=== PATIENT | male | born 1990 | race Caucasian/White ===

== ENCOUNTER 2018-03-18 17:23 | Emergency (ER) | payer SELFPAY ==
[~2018-03-18] VITALS: Ht 182.9 cm; Wt 61.7 kg
--- NOTE | 2018-03-18 18:30 | PHYS DOC ---
Past Medical History Past Medical History: No Pertinent History Past Surgical History: Appendectomy Smoking: Cigarettes Adult General Chief Complaint Chief Complaint: ABDOMINAL PAIN HPI HPI 28-year-old male presents with report of lower abdominal pain with radiation to flank. Patient also reports some discomfort in his groin. Denies known trauma. Denies fever or chills. Patient reports pain started approximately 10 AM today. Reports pain has waxed and waned in intensity. Reports some associated nausea. Denies hematuria or dysuria. Denies rash. Reports subjective fever/chills. Denies history of kidney stones. Review of Systems Review of Systems Constitutional: Reports subjective fever/ chills [] Eyes: Denies change in visual acuity, redness, or eye pain [] HENT: Denies nasal congestion or sore throat [] Respiratory: Denies cough or shortness of breath [] Cardiovascular: Denies chest pain or palpitations GI: Reports abdominal pain and nausea; denies vomiting or diarrhea [] : Denies dysuria or hematuria [] Musculoskeletal: Reports back pain; denies joint pain [] Integument: Denies rash or skin lesions [] Neurologic: Denies headache, focal weakness or sensory changes [] Complete systems were reviewed and found to be within normal limits, except as documented in this note. Current Medications Current Medications Current Medications Medications (Trade) Dose Ordered Sig/Tresa Start Time Stop Time Status Last Admin Dose Admin Acetaminophen (Tylenol) 500 mg 1X ONCE 03/18/18 19:00 03/18/18 19:01 DC 03/18/18 19:18 500 MG Fentanyl Citrate (Fentanyl 2ml Vial) 50 mcg 1X ONCE 03/18/18 18:45 03/18/18 18:46 DC 03/18/18 19:17 50 MCG Ketorolac Tromethamine (Toradol 30mg Vial) 15 mg 1X ONCE 03/18/18 18:45 03/18/18 18:46 DC 03/18/18 19:17 15 MG Magnesium Sulfate 50 ml @ 25 mls/hr 1X ONCE 03/18/18 20:00 03/18/18 21:59 03/18/18 20:59 25 MLS/HR Metoclopramide HCl (Reglan Vial) 10 mg 1X ONCE 03/18/18 18:45 03/18/18 18:46 DC 03/18/18 19:17 10 MG Sodium Chloride 1,000 ml @ 1,000 mls/hr 1X ONCE 03/18/18 18:45 03/18/18 19:44 DC 03/18/18 19:18 1,000 MLS/HR Allergies Allergies Allergies Coded Allergies Type Severity Reaction Last Updated Verified No Known Drug Allergies 03/18/18 No Physical Exam Physical Exam Constitutional: Well developed, well nourished, appears uncomfortable, non- toxic appearance. [] HENT: Normocephalic, atraumatic, oropharynx moist, poor dentition Eyes: PERRL, EOMI, conjunctiva normal, no discharge. [] Neck: Normal range of motion, no tenderness, supple, no meningeal signs Cardiovascular: Heart rate regular rhythm, no murmur [] Lungs & Thorax: Bilateral breath sounds clear to auscultation; no Rales Abdomen: Soft, no tenderness Skin: Warm, dry, no erythema, no rash. [] Back: Right CVA tenderness, no midline spinal tenderness on palpation Extremities: No calf tenderness, ROM intact, no edema. [] Neurologic: Alert and oriented X 3, normal motor function, normal sensory function, no focal deficits noted. [] Psychologic: Affect normal, judgement normal, mood normal. [] Current Patient Data Vital Signs Vital Signs Date Time Temp Pulse Resp B/P (MAP) Pulse Ox O2 Delivery O2 Flow Rate FiO2 03/18/18 19:17 20 99 Room Air 03/18/18 18:00 100.5 89 132/74 (93) 100.5 Lab Values Laboratory Tests Test 03/18/18 18:00 03/18/18 18:20 Urine Collection Type Unknown Urine Color Maura Urine Clarity Clear Urine pH 6.0 Urine Specific Shubert 1.025 Urine Protein Negative mg/dL (NEG-TRACE) Urine Glucose (UA) Negative mg/dL (NEG) Urine Ketones (Stick) 15 mg/dL (NEG) Urine Blood Negative (NEG) Urine Nitrite Negative (NEG) Urine Bilirubin Negative (NEG) Urine Urobilinogen Dipstick 0.2 mg/dL (0.2 mg/dL) Urine Leukocyte Esterase Negative (NEG) Urine RBC 0 /HPF (0-2) Urine WBC 1-4 /HPF (0-4) Urine Squamous Epithelial Cells Few /LPF Urine Bacteria 0 /HPF (0-FEW) Urine Mucus Marked /LPF White Blood Count 9.6 x10^3/uL (4.0-11.0) Red Blood Count 4.69 x10^6/uL (4.30-5.70) Hemoglobin 14.4 g/dL (13.0-17.5) Hematocrit 41.0 % (39.0-53.0) Mean Corpuscular Volume 88 fL (79-100) Mean Corpuscular Hemoglobin 31 pg (25-35) Mean Corpuscular Hemoglobin Concent 35 g/dL (31-37) Red Cell Distribution Width 13.7 % (11.5-14.5) Platelet Count 248 x10^3/uL (140-400) Neutrophils (%) (Auto) 87 % (31-73) H Lymphocytes (%) (Auto) 6 % (24-48) L Monocytes (%) (Auto) 7 % (0-9) Eosinophils (%) (Auto) 0 % (0-3) Basophils (%) (Auto) 0 % (0-3) Neutrophils # (Auto) 8.3 x10^3uL (1.8-7.7) H Lymphocytes # (Auto) 0.6 x10^3/uL (1.0-4.8) L Monocytes # (Auto) 0.6 x10^3/uL (0.0-1.1) Eosinophils # (Auto) 0.0 x10^3/uL (0.0-0.7) Basophils # (Auto) 0.0 x10^3/uL (0.0-0.2) Platelet Estimate Pending Sodium Level 140 mmol/L (136-145) Potassium Level 3.3 mmol/L (3.5-5.1) L Chloride Level 103 mmol/L (98-107) Carbon Dioxide Level 24 mmol/L (21-32) Anion Gap 13 (6-14) Blood Urea Nitrogen 12 mg/dL (8-26) Creatinine 0.9 mg/dL (0.7-1.3) Estimated GFR (Cockcroft-Gault) 102.0 BUN/Creatinine Ratio 13 (6-20) Glucose Level 103 mg/dL (70-99) H Calcium Level 9.9 mg/dL (8.5-10.1) Magnesium Level 1.2 mg/dL (1.8-2.4) L Total Bilirubin 0.5 mg/dL (0.2-1.0) Aspartate Amino Transferase (AST) 13 U/L (15-37) L Alanine Aminotransferase (ALT) 18 U/L (16-63) Alkaline Phosphatase 68 U/L (46-116) Total Protein 7.6 g/dL (6.4-8.2) Albumin 4.2 g/dL (3.4-5.0) Albumin/Globulin Ratio 1.2 (1.0-1.7) Lipase 174 U/L (73-393) Laboratory Tests 03/18/18 18:20 Laboratory Tests 03/18/18 18:20 EKG EKG [] Radiology/Procedures Radiology/Procedures PROCEDURE: CT ABDOMEN PELVIS WO CONTRAST Exam performed: CT scan of the abdomen and pelvis without contrast. Clinical Indication: Bilateral flank pain. Date of Service: 03/18/2018 . Comparison: None available Technique: Contiguous helical acquisitions are obtained through the abdomen and pelvis without oral or IV contrast. Sagittal and coronal reformatted images are obtained and reviewed. CT abdomen findings: The lung bases are essentially clear. The visualized heart is normal. Lack of IV contrast limits evaluation of abdominal viscera, however the liver, spleen, pancreas and gallbladder appear normal. Both adrenal glands and bilateral kidneys are normal in size. There is no nephrolithiasis or hydronephrosis. No perinephric stranding is seen. Aorta is normal in caliber. No retroperitoneal or mesenteric lymphadenopathy. Small and large bowel loops are nondilated and unremarkable. There is scattered stool in the colon. Mildly prominent mesenteric lymph nodes are seen in the central and right lower abdomen. CT pelvis findings: The pelvic bowel loops are nondilated and unremarkable. The urinary bladder is decompressed. The prostate gland and seminal vesicles are normal. No fluid collections or pelvic lymphadenopathy. Bones are unremarkable. Impression: No acute intra-abdominal or pelvic process noted. Mildly prominent mesenteric lymph nodes seen in the midline in the right lower abdomen. Mesenteric adenitis is possible. PQRS Compliance Statement: One or more of the following individualized dose reduction techniques were utilized for this examination: 1. Automated exposure control 2. Adjustment of the mA and/or kV according to patient size 3. Use of iterative reconstruction technique Electronically signed by: Monika Vale MD (03/18/2018 8:28 PM) [facility] Course & Med Decision Making Course & Med Decision Making Pertinent Labs and Imaging studies reviewed. (See chart for details) Patient presents with report of lower abdominal pain with associated flank pain and radiation to groin. Denies known trauma. Reports some subjective fever/ chills. Patient noted to be febrile. Fever addressed. Pain/nausea addressed. Labs obtained and posted to chart. UA without acute process. CT abdomen/pelvis without acute process. Mesenteric thickening noted which appears nonspecific and inconsistent with patient exam. Magnesium replaced. Patient stable for discharge with outpatient follow-up with PCP/GI. GI referral provided. Patient to increase diet to include foods that are rich in potassium and magnesium. Discussed findings and plan with patient and family, who acknowledge understanding and agreement. Dragon Disclaimer Dragon Disclaimer This electronic medical record was generated, in whole or in part, using a voice recognition dictation system. Departure Departure Impression: Primary Impression: Abdominal pain Additional Impressions: Back pain Hypomagnesemia Hypokalemia Disposition: HOME, SELF-CARE Condition: STABLE Referrals: NO PCP (PCP) PERICO MUNOZ MD Patient Instructions: Abdominal Pain, Back Pain, Adult, [id number], Hypokalemia, Hypomagnesemia, Potassium Content of Foods Additional Instructions: Increase your diet to include foods rich in potassium and magnesium. Scripts Naproxen (NAPROSYN) 500 Mg Tablet 500 MG PO BID PRN for PAIN for 10 Days, #20 TAB Prov: CHRISTOPHER CERVANTES DO 03/18/18 Orphenadrine Citrate (ORPHENADRINE CITRATE) 100 Mg Tablet.er 1 TAB PO BID, #14 TAB 0 Refills Prov: CHRISTOPHER CERVANTES DO 03/18/18 Famotidine (PEPCID) 20 Mg Tablet 20 MG PO BID, #20 TAB Prov: CHRISTOPHER CERVANTES DO 03/18/18 Problem Qualifiers Primary Impression: Abdominal pain Abdominal location: lower abdomen, unspecified Qualified Codes: R10.30 - Lower abdominal pain, unspecified Additional Impressions: Back pain Back pain location: low back pain Chronicity: acute Back pain laterality: bilateral Sciatica presence: without sciatica Qualified Codes: M54.5 - Low back pain CHRISTOPHER CERVANTES DO Mar 18, 2018 18:30
[2018-03-18] MEDS ORDERED: KETOROLAC 30 MG/ML VIAL. IV ONE (18:45)
[2018-03-18] MEDS ORDERED: IV NORMAL SALINE 1000ML BAG 1,000 ML IV ONE (18:45)
[2018-03-18] MEDS ORDERED: METOCLOPRAMIDE HCL 10 MG/2 ML VIAL. IV ONE (18:45)
[2018-03-18] MEDS ORDERED: fentaNYL PF VIAL 100 MCG/2 ML VIAL IV ONE (18:45)
[2018-03-18 18:53] LABS: BILIRUBIN,URINE NEGATIVE (NEG); CLARITY,URINE CLEAR; COLOR,URINE AMBER; NITRITE,URINE NEGATIVE (NEG); PROTEIN,URINE NEGATIVE (NEG-TRACE); UROBILINOGEN,URINE 0.2 mg/dL (0.2 mg/dL)
[2018-03-18 18:56] LABS: BASO % 0 % (0-3); EOS % 0 % (0-3); HEMOGLOBIN 14.4 g/dL (13.0-17.5); LYMPH # 0.6 x10^3/uL (1.0-4.8); LYMPH % 6 % (24-48); MEAN CORPUSCULAR HEMOGLOBIN 31 pg (25-35); MEAN CORPUSCULAR HGB CONC 35 g/dL (31-37); MEAN CORPUSCULAR VOLUME 88 fL (79-100); MONO # 0.6 x10^3/uL (0.0-1.1); MONO % 7 % (0-9); NEUT # 8.3 x10^3uL (1.8-7.7); NEUT % 87 % (31-73); PLATELET COUNT 248 x10^3/uL (140-400); RED BLOOD COUNT 4.69 x10^6/uL (4.30-5.70); RED CELL DISTRIBUTION WIDTH 13.7 % (11.5-14.5); WHITE BLOOD COUNT 9.6 x10^3/uL (4.0-11.0)
[2018-03-18] MEDS ORDERED: ACETAMINOPHEN 500 MG TABLET PO ONE (19:00)
[2018-03-18 19:03] LABS: CALCIUM 9.9 mg/dL (8.5-10.1); CREATININE 0.9 mg/dL (0.7-1.3); POTASSIUM 3.3 mmol/L (3.5-5.1)
[2018-03-18 19:08] LABS: ALBUMIN 4.2 g/dL (3.4-5.0); ALBUMIN/GLOBULIN RATIO 1.2 (1.0-1.7); MAGNESIUM 1.2 mg/dL (1.8-2.4); TOTAL BILIRUBIN 0.5 mg/dL (0.2-1.0); TOTAL PROTEIN 7.6 g/dL (6.4-8.2)
[2018-03-18 19:47] LABS: BACTERIA,URINE 0 /HPF (0-FEW); RBC,URINE 0 /HPF (0-2); SQUAMOUS EPITHELIAL CELL,UR FEW /LPF
[2018-03-18] MEDS ORDERED: MAGNESIUM SULFATE 2GM 50 ML IV ONE (20:00)
--- NOTE | 2018-03-18 20:32 | RAD ---
Exam performed: CT scan of the abdomen and pelvis without contrast. Clinical Indication: Bilateral flank pain. Date of Service: 03/18/2018 . Comparison: None available Technique: Contiguous helical acquisitions are obtained through the abdomen and pelvis without oral or IV contrast. Sagittal and coronal reformatted images are obtained and reviewed. CT abdomen findings: The lung bases are essentially clear. The visualized heart is normal. Lack of IV contrast limits evaluation of abdominal viscera, however the liver, spleen, pancreas and gallbladder appear normal. Both adrenal glands and bilateral kidneys are normal in size. There is no nephrolithiasis or hydronephrosis. No perinephric stranding is seen. Aorta is normal in caliber. No retroperitoneal or mesenteric lymphadenopathy. Small and large bowel loops are nondilated and unremarkable. There is scattered stool in the colon. Mildly prominent mesenteric lymph nodes are seen in the central and right lower abdomen. CT pelvis findings: The pelvic bowel loops are nondilated and unremarkable. The urinary bladder is decompressed. The prostate gland and seminal vesicles are normal. No fluid collections or pelvic lymphadenopathy. Bones are unremarkable. Impression: No acute intra-abdominal or pelvic process noted. Mildly prominent mesenteric lymph nodes seen in the midline in the right lower abdomen. Mesenteric adenitis is possible. PQRS Compliance Statement: One or more of the following individualized dose reduction techniques were utilized for this examination: 1. Automated exposure control 2. Adjustment of the mA and/or kV according to patient size 3. Use of iterative reconstruction technique Electronically signed by: Monika Vale MD (03/18/2018 8:28 PM) [facility]
[2018-03-18] MEDS ORDERED: FAMO-63 PO (21:11)
[2018-03-18] MEDS ORDERED: ORPH100T PO (21:11)
[2018-03-18] MEDS ORDERED: NAPR-683 PO (21:11)
[2018-03-18 21:25] LABS: % BANDS 9 % (0-9); % LYMPHS 8 % (24-48); % MONOS 6 % (0-10); % SEGS 77 % (35-66); PLT ESTIMATE ADEQUATE (ADEQUATE)
[2018-03-18 22:30] VITALS: BP 112/55
[2018-03-18] MEDS ORDERED: ORPHENADRINE CITRATE 60 MG/2 ML VIAL. IV ONE (23:30)
== END 2018-03-18 23:15 | disposition home or self-care (01) ==
LOC: ER 17:23
DX: R10.30 Lower abdominal pain, unspecified (principal); M54.5 Low back pain; E83.42 Hypomagnesemia; E87.6 Hypokalemia
CPT/HCPCS: 36415; 74176; 80053; 81001; 83690; 83735; 85007; 85025; 96365; 96366; 96375; 99285; J1885; J2360; J2765; J3010; J3475; J7030

== ENCOUNTER 2018-08-21 04:44 | Emergency (ER) | payer SELFPAY ==
[~2018-08-21] VITALS: Ht 182.9 cm; Wt 61.7 kg
[~2018-08-21 04:44] MED LIST: FAMO-63 PO; NAPR-683 PO; ORPH100T PO
--- NOTE | 2018-08-21 04:57 | PHYS DOC ---
Past Medical History Past Medical History: No Pertinent History Past Surgical History: Appendectomy Alcohol Use: None Drug Use: Marijuana Adult General Chief Complaint Chief Complaint: ABDOMINAL PAIN HPI HPI Patient is a 28-year-old male who presents with complaint of abdominal pain with nausea and vomiting that started on Friday. He rates his pain currently to be an 8 out of 10 and describes pain as sharp and stabbing in nature. He states that his last bowel movement was a day and a half ago and states that it was liquid. He denies any fever. Patient states that he has not been able to eat anything for the last 3 days because of the nausea and vomiting. Patient states that nothing improves his symptoms. Review of Systems Review of Systems Constitutional: Denies fever or chills [] Respiratory: Denies cough or shortness of breath [] Cardiovascular: No additional information not addressed in HPI [] GI: Complains of abdominal pain with nausea, vomiting and diarrhea [] Integument: Denies rash or skin lesions [] Neurologic: Denies headache, focal weakness or sensory changes [] All other systems were reviewed and found to be within normal limits, except as documented in this note. Current Medications Current Medications Current Medications Medications (Trade) Dose Ordered Sig/Tresa Start Time Stop Time Status Last Admin Dose Admin Diphenhydramine HCl (Benadryl) 25 mg 1X ONCE 08/21/18 06:00 08/21/18 06:01 DC Info (CONTRAST GIVEN -- Rx MONITORING) 1 each PRN DAILY PRN 08/21/18 05:30 08/23/18 05:29 Iohexol (Omnipaque 300 Mg/ml) 75 ml 1X ONCE 08/21/18 06:00 08/21/18 06:01 DC 08/21/18 05:42 75 ML Ketorolac Tromethamine (Toradol 30mg Vial) 30 mg 1X ONCE 08/21/18 05:30 08/21/18 05:31 DC 08/21/18 05:28 30 MG Magnesium Sulfate/ Dextrose 100 ml @ 100 mls/hr 1X ONCE 08/21/18 06:30 08/21/18 07:29 Metoclopramide HCl (Reglan Vial) 10 mg 1X ONCE 08/21/18 06:00 08/21/18 06:01 DC Ondansetron HCl (Zofran) 4 mg 1X ONCE 08/21/18 05:30 08/21/18 05:31 DC 08/21/18 05:26 4 MG Sodium Chloride 1,000 ml @ 1,000 mls/hr Q1H 08/21/18 05:30 08/21/18 06:29 08/21/18 05:29 1,000 MLS/HR Allergies Allergies Allergies Coded Allergies Type Severity Reaction Last Updated Verified No Known Drug Allergies 03/18/18 No Physical Exam Physical Exam Constitutional: Well developed, well nourished, no acute distress, non-toxic appearance. [] HENT: Normocephalic, atraumatic, bilateral external ears normal, oropharynx moist, no oral exudates, nose normal. [] Eyes: PERRLA, EOMI, conjunctiva normal, no discharge. [] Neck: Normal range of motion, no tenderness, supple, no stridor. [] Cardiovascular: Regular rate and rhythm[] Lungs & Thorax: Bilateral breath sounds clear to auscultation [] Abdomen: Bowel sounds normal, soft, with moderate reported tenderness to palpation in the right abdomen. [] Skin: Warm, dry, no erythema, no rash. [] Extremities: No tenderness, no cyanosis, no clubbing, ROM intact, no edema. [] Neurologic: Alert and oriented X 3, no focal deficits noted. [] Current Patient Data Vital Signs Vital Signs Date Time Temp Pulse Resp B/P (MAP) Pulse Ox O2 Delivery O2 Flow Rate FiO2 08/21/18 04:45 98.4 94 18 179/63 (101) 99 Room Air 98.4 Lab Values Laboratory Tests Test 08/21/18 05:00 08/21/18 05:07 White Blood Count 10.9 x10^3/uL (4.0-11.0) Red Blood Count 4.95 x10^6/uL (4.30-5.70) Hemoglobin 14.9 g/dL (13.0-17.5) Hematocrit 43.3 % (39.0-53.0) Mean Corpuscular Volume 88 fL (79-100) Mean Corpuscular Hemoglobin 30 pg (25-35) Mean Corpuscular Hemoglobin Concent 34 g/dL (31-37) Red Cell Distribution Width 14.1 % (11.5-14.5) Platelet Count 197 x10^3/uL (140-400) Neutrophils (%) (Auto) 74 % (31-73) H Lymphocytes (%) (Auto) 19 % (24-48) L Monocytes (%) (Auto) 7 % (0-9) Eosinophils (%) (Auto) 0 % (0-3) Basophils (%) (Auto) 0 % (0-3) Neutrophils # (Auto) 8.0 x10^3uL (1.8-7.7) H Lymphocytes # (Auto) 2.1 x10^3/uL (1.0-4.8) Monocytes # (Auto) 0.8 x10^3/uL (0.0-1.1) Eosinophils # (Auto) 0.0 x10^3/uL (0.0-0.7) Basophils # (Auto) 0.0 x10^3/uL (0.0-0.2) Sodium Level 142 mmol/L (136-145) Potassium Level 3.5 mmol/L (3.5-5.1) Chloride Level 103 mmol/L (98-107) Carbon Dioxide Level 25 mmol/L (21-32) Anion Gap 14 (6-14) Blood Urea Nitrogen 19 mg/dL (8-26) Creatinine 0.8 mg/dL (0.7-1.3) Estimated GFR (Cockcroft-Gault) 116.9 BUN/Creatinine Ratio 24 (6-20) H Glucose Level 119 mg/dL (70-99) H Calcium Level 9.5 mg/dL (8.5-10.1) Total Bilirubin 0.6 mg/dL (0.2-1.0) Aspartate Amino Transferase (AST) 12 U/L (15-37) L Alanine Aminotransferase (ALT) 14 U/L (16-63) L Alkaline Phosphatase 81 U/L (46-116) Total Protein 8.0 g/dL (6.4-8.2) Albumin 4.7 g/dL (3.4-5.0) Albumin/Globulin Ratio 1.4 (1.0-1.7) Lipase 382 U/L (73-393) Urine Collection Type Void Urine Color Yellow Urine Clarity Clear Urine pH 6.0 Urine Specific Quinter 1.025 Urine Protein Negative mg/dL (NEG-TRACE) Urine Glucose (UA) Negative mg/dL (NEG) Urine Ketones (Stick) Trace mg/dL (NEG) Urine Blood Negative (NEG) Urine Nitrite Negative (NEG) Urine Bilirubin Negative (NEG) Urine Urobilinogen Dipstick 1.0 mg/dL (0.2 mg/dL) Urine Leukocyte Esterase Negative (NEG) Urine RBC Occ /HPF (0-2) Urine WBC 1-4 /HPF (0-4) Urine Squamous Epithelial Cells Few /LPF Urine Bacteria Few /HPF (0-FEW) Urine Mucus Mod /LPF Urine Opiates Screen Neg (NEG) Urine Methadone Screen Neg (NEG) Urine Barbiturates Neg (NEG) Urine Phencyclidine Screen Neg (NEG) Urine Amphetamine/Methamphetamine Neg (NEG) Urine Benzodiazepines Screen Neg (NEG) Urine Cocaine Screen Neg (NEG) Urine Cannabinoids Screen Pos (NEG) Urine Ethyl Alcohol Neg (NEG) Laboratory Tests 08/21/18 05:00 Laboratory Tests 08/21/18 05:00 EKG EKG [] Radiology/Procedures Radiology/Procedures [] Course & Med Decision Making Course & Med Decision Making Pertinent Labs and Imaging studies reviewed. (See chart for details) An IV has been established and blood work drawn. Patient given IV fluids as well as Zofran for nausea and Toradol for pain. Patient's blood work is returned essentially unremarkable. Patient is indicating that he had been here previously and one of the medications that had been given in the emergency room had helped a lot with this cramping. Patient is not sure what that medication is. I have reviewed the prior chart and see the patient had been given magnesium , Reglan and fentanyl. Patient has been informed that he will not receive IV opioid treatment as he is on Suboxone. At this time, a CT of the abdomen and pelvis is pending and [facility], Dr. Hamilton. Valerie Disclaimer Valerie Disclaimer This electronic medical record was generated, in whole or in part, using a voice recognition dictation system. Departure Departure Impression: Primary Impression: Cannabis hyperemesis syndrome concurrent with and due to cannabis abuse Additional Impressions: Abdominal pain Mesenteric adenitis Disposition: HOME, SELF-CARE Condition: STABLE Referrals: NO PCP (PCP) Patient Instructions: Abdominal Pain, Marijuana Abuse and Chemical Dependency, Mesenteric Adenitis Scripts Ondansetron Hcl (ZOFRAN) 4 Mg Tablet 4 MG PO PRN TID PRN for NAUSEA, #15 nausea/vomiting Prov: ANA DEWITT Jr. DO 08/21/18 Acetaminophen With Codeine (TYLENOL WITH CODEINE #3 TABLET) 1 Each Tablet 1 TAB PO PRN Q6HRS PRN for PAIN, #10 TAB Prov: ANA DEWITT Jr. DO 08/21/18 Problem Qualifiers Additional Impressions: Abdominal pain Abdominal location: right lower quadrant Qualified Codes: R10.31 - Right lower quadrant pain ANA DEWITT Jr. DO Aug 21, 2018 04:57
[2018-08-21 05:10] LABS: BASO % 0 % (0-3); EOS % 0 % (0-3); HEMATOCRIT 43.3 % (39.0-53.0); HEMOGLOBIN 14.9 g/dL (13.0-17.5); LYMPH # 2.1 x10^3/uL (1.0-4.8); LYMPH % 19 % (24-48); MEAN CORPUSCULAR HEMOGLOBIN 30 pg (25-35); MEAN CORPUSCULAR HGB CONC 34 g/dL (31-37); MEAN CORPUSCULAR VOLUME 88 fL (79-100); MONO # 0.8 x10^3/uL (0.0-1.1); MONO % 7 % (0-9); NEUT % 74 % (31-73); PLATELET COUNT 197 x10^3/uL (140-400); RED BLOOD COUNT 4.95 x10^6/uL (4.30-5.70); RED CELL DISTRIBUTION WIDTH 14.1 % (11.5-14.5); WHITE BLOOD COUNT 10.9 x10^3/uL (4.0-11.0)
[2018-08-21 05:16] LABS: CALCIUM 9.5 mg/dL (8.5-10.1); CREATININE 0.8 mg/dL (0.7-1.3); GFR 116.9; POTASSIUM 3.5 mmol/L (3.5-5.1)
[2018-08-21 05:18] LABS: BILIRUBIN,URINE NEGATIVE (NEG); CLARITY,URINE CLEAR; COLOR,URINE YELLOW; NITRITE,URINE NEGATIVE (NEG); PROTEIN,URINE NEGATIVE (NEG-TRACE)
[2018-08-21 05:22] LABS: ALBUMIN 4.7 g/dL (3.4-5.0); ALBUMIN/GLOBULIN RATIO 1.4 (1.0-1.7); TOTAL BILIRUBIN 0.6 mg/dL (0.2-1.0)
[2018-08-21 05:23] LABS: BARBITURATES NEG (NEG); BENZODIAZEPINES NEG (NEG); CANNABINOIDS POS (NEG); COCAINE NEG (NEG); METHADONE NEG (NEG); OPIATES NEG (NEG); PHENCYCLIDINE NEG (NEG)
[2018-08-21 05:25] LABS: AMPHETAMINE/METHAMPHETAMINE NEG (NEG)
[2018-08-21] MEDS ORDERED: KETOROLAC 30 MG/ML VIAL. IV ONE ×2 (05:30→07:45)
[2018-08-21] MEDS ORDERED: IV NORMAL SALINE 1000ML BAG 1,000 ML IV SCH (05:30)
[2018-08-21] MEDS ORDERED: CONTRAST GIVEN. MC PRN (05:30)
[2018-08-21] MEDS ORDERED: ONDANSETRON PF 4 MG/2 ML VIAL. IV ONE (05:30)
[2018-08-21 05:33] LABS: SQUAMOUS EPITHELIAL CELL,UR FEW /LPF
[2018-08-21 05:34] LABS: BACTERIA,URINE FEW /HPF (0-FEW); RBC,URINE OCC /HPF (0-2)
[2018-08-21] MEDS ORDERED: METOCLOPRAMIDE HCL 10 MG/2 ML VIAL. IV ONE (06:00)
[2018-08-21] MEDS ORDERED: IOHEXOL 300 MG/ML 100ML VIAL. IV ONE (06:00)
[2018-08-21] MEDS ORDERED: diphenhydrAMINE 50 MG/ML VIAL IVP ONE (06:00)
--- NOTE | 2018-08-21 06:02 | RAD ---
EXAM: CT Abdomen and Pelvis with IV contrast CLINICAL HISTORY: Abdominal pain COMPARISON: 03/18/2018 TECHNIQUE: Helical CT of the abdomen and pelvis was performed following the administration of intravenous contrast. Axial, coronal and sagittal reformatted images were generated. PQRS compliance statement - One or more of the following individualized dose reduction techniques were utilized for this study: 1. Automated exposure control 2. Adjustment of the mA and/or kV according to patient size 3. Use of iterative reconstruction technique FINDINGS: Lower chest: Clear Abdomen and Pelvis: Subcentimeter hypodense liver lesion too small to characterize. High density material layering dependently within the gallbladder likely sludge. No biliary ductal dilatation. Calcified granuloma are seen within the spleen. Adrenal glands and pancreas are unremarkable. Symmetric nephrograms. No focal renal lesion. No hydronephrosis. No small or large bowel dilatation. Moderate colonic stool content. Mesenteric lymph nodes are seen. No abdominal or pelvic ascites. Bones: Osseous structures are unremarkable. IMPRESSION: 1. High density within the gallbladder likely sludge. 2. Prominent mesenteric lymph nodes are seen, may be seen with mesenteric adenitis. The appendix is not seen. 3. No evidence for bowel obstruction. Electronically signed by: Miguel Castaneda MD (08/21/2018 5:59 AM) [id number]
[2018-08-21] MEDS ORDERED: ONDA4TAB7 PO (06:11)
[2018-08-21] MEDS ORDERED: ACET-704 PO (06:11)
[2018-08-21] MEDS ORDERED: MAGNESIUM SULFATE 1GM 100 ML IV ONE (06:30)
[2018-08-21] MEDS ORDERED: fentaNYL PF VIAL 100 MCG/2 ML VIAL IV ONE (06:30)
[2018-08-21 07:00] VITALS: BP 127/83
== END 2018-08-21 07:46 | disposition home or self-care (01) ==
LOC: ER 04:44
DX: F12.288 Cannabis dependence with other cannabis-induced disorder (principal); R11.2 Nausea with vomiting, unspecified; R19.7 Diarrhea, unspecified; I88.0 Nonspecific mesenteric lymphadenitis; R10.31 Right lower quadrant pain; Z90.89 Acquired absence of other organs
CPT/HCPCS: 36415; 74177; 80053; 80307; 81001; 83690; 85025; 96361; 96365; 96375; 96376; 99284; J1200; J1885; J2405; J2765; J3010; J3475; J7030; Q9967